=== PATIENT | female | born 1960 | race Caucasian/White ===

== ENCOUNTER 2017-07-18 05:04 | Inpatient (IN) | payer MEDICAID ==
[2017-07-18] MEDS ORDERED: NS 1,000 ML IV ONE ×2 (05:13→05:57)
[2017-07-18 05:42] LABS: PLATELET COUNT 321 10^3/uL (150-400)
[2017-07-18] MEDS ORDERED: PROMETHAZINE HCL 25 MG/ML INJ IVP ONE (05:45)
--- NOTE | 2017-07-18 05:49 | EDPHY ---
H & P Stated Complaint: n/v Source: Patient Exam Limitations: No limitations - Personal History Current Tetanus Diphtheria and Acellular Pertussis (TDAP): Yes - Medical/Surgical History Hx Asthma: Yes Hx Chronic Respiratory Disease: No Hx Diabetes: No Hx Cardiac Disease: No Hx Renal Disease: No Hx Cirrhosis: Yes Hx Alcoholism: No Hx HIV/AIDS: No Hx Splenectomy or Spleen Trauma: No Other PMH: hypothyroid, fibro myalgia, - Social History Smoking Status: Light smoker Time Seen by Provider: 07/18/17 05:15 HPI/ROS: HPI The patient presents with nausea and vomiting which started abruptly about 3 hr ago which has been constant, moderate in severity, and associated with diffuse abdominal pain and cramping. She also reports occasional loose stools with this. [facility] and does report that there have been many sick people around her. She has not had a fever. She is brought in by ambulance and did receive Zofran in the field with minimal improvement in her symptoms.. REVIEW OF SYSTEMS Constitutional: No fever, no chills. Eyes: No discharge. ENT: No sore throat. Cardiovascular: No chest pain, no palpitations. Respiratory: No cough, no shortness of breath. Gastrointestinal: See HPI Genitourinary: No hematuria. Musculoskeletal: No back pain. Skin: No rashes. Neurological: No headache. 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, history of multiple hernia repairs with revision Soc Hx: Homeless, [facility] in pen[facility] PHYSICAL General Appearance: Alert, no distress Eyes: Pupils equal and round no pallor or injection ENT, Mouth: Mucous membranes moist Respiratory: There are no retractions, lungs are clear to auscultation Cardiovascular: Regular rate and rhythm Gastrointestinal: Abdomen is soft with tenderness to palpation in all quadrants Neurological: A&O, moves all extremities Skin: Warm and dry, no rashes Musculoskeletal: Neck is supple non tender Extremities: symmetrical, full range of motion Psychiatric: Patient is oriented X 3, there is no agitation (Riguzzi,Bobbi) Constitutional: Initial Vital Signs Temperature (C) 36.4 C 07/18/17 05:09 Heart Rate 60 07/18/17 05:09 Respiratory Rate 20 07/18/17 05:09 Blood Pressure 171/92 H 07/18/17 05:09 O2 Sat (%) 99 07/18/17 05:09 O2 Delivery Mode Room Air O2 (L/minute) 2 Allergies/Adverse Reactions: aspirin Allergy (Verified 07/18/17 05:08) codeine Allergy (Verified 07/18/17 05:08) hydrocodone Allergy (Verified 07/18/17 05:08) prochlorperazine [From Compazine] Allergy (Verified 07/18/17 05:08) Home Medications: Medication Instructions Recorded Ondansetron Odt [Zofran Odt 4 mg 4 mg PO Q4 PRN #10 tab 07/18/17 (*)] Medical Decision Making - Diagnostics Imaging Results: CT abdomen pelvis reviewed by me and discussed with Dr. Flores shows diffuse, mildly dilated small-bowel loops. Her patient is consistent with enteritis. No clear small-bowel obstruction at this time. Status post appendectomy, cholecystectomy, hernia repair. Dr. Flores called me back in and after further review of the CT is concerned that this is developing small-bowel obstruction (Warren Ruff) ED Course/Re-evaluation: Re-evaluated by me at 7:30 a.m.--patient tells me she feel aweful. Continues to have some abdominal cramping and be nauseated. No vomiting. I consulted discussed case with , hospitalist, who agrees to the admission (Warren Ruff) Differential Diagnosis: This is a 57-year-old female with past medical history of fibromyalgia, heroin use now on methadone, DJD of her spine who presents [facility] with nausea and vomiting for the last several hours. On exam, she is not actively vomiting, vital signs are normal, her abdomen is tender throughout. Differential diagnosis includes viral gastroenteritis, toxin mediated enterocolitis, small-bowel obstruction. In the emergency department, patient received IV fluids and antiemetics. Labs were checked and did reveal elevated BUN and creatinine. The patient went for CT scan to evaluate for SBO. At 7:00 a.m., the case was signed out to the oncoming provider Dr. Ruff pending the patient's CT scan results. (Bobbi Fischer) - Data Points Laboratory Results: Laboratory Results 07/18/17 05:25 07/18/17 05:25 07/18/17 07/18/17 05:25 05:25 WBC 11.24 10^3/uL H 10^3/uL (3.80-9.50) RBC 4.09 10^6/uL L 10^6/uL (4.18-5.33) Hgb 11.8 g/dL L g/dL (12.6-16.3) Hct 36.5 % L % (38.0-47.0) MCV 89.2 fL fL (81.5-99.8) MCH 28.9 pg pg (27.9-34.1) MCHC 32.3 g/dL L g/dL (32.4-36.7) RDW 16.7 % H % (11.5-15.2) Plt Count 321 10^3/uL 10^3/uL (150-400) MPV 9.3 fL fL (8.7-11.7) Neut % (Auto) 88.7 % H % (39.3-74.2) Lymph % (Auto) 5.8 % L % (15.0-45.0) [place]nn % (Auto) 3.3 % L % (4.5-13.0) Eos % (Auto) 1.5 % % (0.6-7.6) Baso % (Auto) 0.3 % % (0.3-1.7) Nucleat RBC Rel Count 0.0 % % (0.0-0.2) Absolute Neuts (auto) 9.97 10^3/uL H 10^3/uL (1.70-6.50) Absolute Lymphs (auto) 0.65 10^3/uL L 10^3/uL (1.00-3.00) Absolute Monos (auto) 0.37 10^3/uL 10^3/uL (0.30-0.80) Absolute Eos (auto) 0.17 10^3/uL 10^3/uL (0.03-0.40) Absolute Basos (auto) 0.03 10^3/uL 10^3/uL (0.02-0.10) Absolute Nucleated RBC 0.00 10^3/uL 10^3/uL (0-0.01) Immature Gran % 0.4 % % (0.0-1.1) Immature Gran # 0.05 10^3/uL 10^3/uL (0.00-0.10) Sodium 144 mEq/L mEq/L (135-145) Potassium 4.8 mEq/L mEq/L (3.5-5.2) Chloride 108 mEq/L mEq/L (97-110) Carbon Dioxide 24 mEq/l mEq/l (22-31) Anion Gap 12 mEq/L mEq/L (8-16) BUN 32 mg/dL H mg/dL (7-23) Creatinine 1.7 mg/dL H mg/dL (0.6-1.0) Estimated GFR 31 Glucose 96 mg/dL mg/dL (70-100) Calcium 9.2 mg/dL mg/dL (8.5-10.4) Total Bilirubin 0.5 mg/dL mg/dL (0.1-1.4) AST 21 IU/L IU/L (14-46) ALT 30 IU/L IU/L (9-52) Alkaline Phosphatase 121 IU/L IU/L (38-126) Total Protein 7.8 g/dL g/dL (6.3-8.2) Albumin 4.3 g/dL g/dL (3.5-5.0) Lipase 154 IU/L IU/L (23-300) Medications Given: Discontinued Medications Sodium Chloride (Ns) 1,000 mls @ 3,000 mls/hr IV ONCE ONE Stop: 07/18/17 05:32 Last Admin: 07/18/17 05:14 Dose: 1,000 mls Sodium Chloride (Ns) 1,000 mls @ 0 mls/hr IV EDNOW ONE; Wide Open PRN Reason: Protocol Stop: 07/18/17 05:58 Last Admin: 07/18/17 06:01 Dose: 1,000 mls Promethazine HCl (Phenergan) 12.5 mg IVP ONCE ONE Stop: 07/18/17 05:46 Last Admin: 07/18/17 05:54 Dose: 12.5 mg Departure - Departure Disposition: [facility] Clinical Impression: Nausea & vomiting Qualifiers: Vomiting type: unspecified Vomiting Intractability: non-intractable Qualified Code(s): R11.2 - Nausea with vomiting, unspecified Condition: Good Instructions: Acute Nausea and Vomiting (ED) Additional Instructions: Please make sure to drink clear fluids until your feeling better. You should return to the emergency department if your worse in any way, otherwise you should [facility] in the next few days. Referrals: [facility],. [Clinic] - As per Instructions Prescriptions: Ondansetron Odt [Zofran Odt 4 mg (*)] 4 mg PO Q4 PRN #10 tab PRN Reason: Nausea/Vomiting, Can'T Take Po
[2017-07-18] MEDS ORDERED: IOPAMIDOL (ISOVUE-300) 100 ML BTL ONE (05:58)
[2017-07-18] MEDS ORDERED: PROMETHAZINE HCL 25 MG/ML INJ IVP PRN (08:23)
--- NOTE | 2017-07-18 08:30 | PDGENHP ---
History and Physical - Chief Complaint abd pain/n/v - History of Present Illness 57 yo F with PMH of fibromyalgia, chronic pain with continuous narcotic use and dependency as well as heroin dependency that is now being managed with methadone presenting with abdominal pain. She states the pain has been present since yesterday and is generalized throughout her entire abdomen. She has nausea and vomiting associated with the pain. She had a BM this morning that was loose. She has not had fever or chills. She has not eaten anything unusual recently. She has never had similar issues in the past. History Information - Allergies/Home Medication List Allergies/Adverse Reactions: aspirin Allergy (Verified 07/18/17 05:08) codeine Allergy (Verified 07/18/17 05:08) hydrocodone Allergy (Verified 07/18/17 05:08) prochlorperazine [From Compazine] Allergy (Verified 07/18/17 05:08) Home Medications: Methadone HCl [Methadone 5 mg (*)] 105 mg PO DAILY 07/18/17 [Last Taken 07/17/17 ] fentaNYL [Duragesic 100 MCG Patch (*)] 100 mcg TD Q2D 07/18/17 [Last Taken 07/18] fentaNYL [Fentanyl] 25 mcg TD Q2D 07/18/17 [Last Taken 07/18/17] I have personally reviewed and updated: family history, medical history, social history, surgical history - Past Medical History fibromyalgia Additional medical history: hx of IVDA--now on methadone. chronic pain with continuous opiate use and dependence - Surgical History Reports: appendectomy, cholecystectomy, hernia repair, spinal surgery - Family History Positive for: non-pertinent - Social History Smoking Status: Light smoker Alcohol Use: Occasionally Drug Use: Heroin (now on methadone), Other Review of Systems Review of Systems: ROS: 10pt was reviewed & negative except for what was stated in HPI & below Physical Exam Physical Exam: Temp Pulse Resp BP Pulse Ox 36.9 C 61 16 150/88 H 96 07/18/17 08:16 07/18/17 08:16 07/18/17 08:16 07/18/17 08:16 07/18/17 08:16 Constitutional: no apparent distress, unkempt Eyes: PERRL, anicteric sclera Ears, Nose, Mouth, Throat: moist mucous membranes, hearing normal Cardiovascular: regular rate and rhythym, no murmur, rub, or gallop, No edema Respiratory: no respiratory distress, no rales or rhonchi Gastrointestinal: normoactive bowel sounds, soft, non-tender abdomen Genitourinary: no bladder tenderness Skin: warm, normal color Musculoskeletal: full muscle strength Neurologic: AAOx3 Psychiatric: interacting appropriately, not anxious, not encephalopathic Lab Data & Imaging Review 07/18/17 05:25 07/18/17 05:25 WBC 11.24 10^3/uL (3.80-9.50) H 07/18/17 05:25 RBC 4.09 10^6/uL (4.18-5.33) L 07/18/17 05:25 Hgb 11.8 g/dL (12.6-16.3) L 07/18/17 05:25 Hct 36.5 % (38.0-47.0) L 07/18/17 05:25 MCV 89.2 fL (81.5-99.8) 07/18/17 05:25 MCH 28.9 pg (27.9-34.1) 07/18/17 05:25 MCHC 32.3 g/dL (32.4-36.7) L 07/18/17 05:25 RDW 16.7 % (11.5-15.2) H 07/18/17 05:25 Plt Count 321 10^3/uL (150-400) 07/18/17 05:25 MPV 9.3 fL (8.7-11.7) 07/18/17 05:25 Neut % (Auto) 88.7 % (39.3-74.2) H 07/18/17 05:25 Lymph % (Auto) 5.8 % (15.0-45.0) L 07/18/17 05:25 [place] % (Auto) 3.3 % (4.5-13.0) L 07/18/17 05:25 Eos % (Auto) 1.5 % (0.6-7.6) 07/18/17 05:25 Baso % (Auto) 0.3 % (0.3-1.7) 07/18/17 05:25 Nucleat RBC Rel Count 0.0 % (0.0-0.2) 07/18/17 05:25 Absolute Neuts (auto) 9.97 10^3/uL (1.70-6.50) H 07/18/17 05:25 Absolute Lymphs (auto) 0.65 10^3/uL (1.00-3.00) L 07/18/17 05:25 Absolute Monos (auto) 0.37 10^3/uL (0.30-0.80) 07/18/17 05:25 Absolute Eos (auto) 0.17 10^3/uL (0.03-0.40) 07/18/17 05:25 Absolute Basos (auto) 0.03 10^3/uL (0.02-0.10) 07/18/17 05:25 Absolute Nucleated RBC 0.00 10^3/uL (0-0.01) 07/18/17 05:25 Immature Gran % 0.4 % (0.0-1.1) 07/18/17 05:25 Immature Gran # 0.05 10^3/uL (0.00-0.10) 07/18/17 05:25 Sodium 144 mEq/L (135-145) 07/18/17 05:25 Potassium 4.8 mEq/L (3.5-5.2) 07/18/17 05:25 Chloride 108 mEq/L (97-110) 07/18/17 05:25 Carbon Dioxide 24 mEq/l (22-31) 07/18/17 05:25 Anion Gap 12 mEq/L (8-16) 07/18/17 05:25 BUN 32 mg/dL (7-23) H 07/18/17 05:25 Creatinine 1.7 mg/dL (0.6-1.0) H 07/18/17 05:25 Estimated GFR 31 07/18/17 05:25 Glucose 96 mg/dL (70-100) 07/18/17 05:25 Calcium 9.2 mg/dL (8.5-10.4) 07/18/17 05:25 Total Bilirubin 0.5 mg/dL (0.1-1.4) 07/18/17 05:25 AST 21 IU/L (14-46) 07/18/17 05:25 ALT 30 IU/L (9-52) 07/18/17 05:25 Alkaline Phosphatase 121 IU/L (38-126) 07/18/17 05:25 Total Protein 7.8 g/dL (6.3-8.2) 07/18/17 05:25 Albumin 4.3 g/dL (3.5-5.0) 07/18/17 05:25 Lipase 154 IU/L (23-300) 07/18/17 05:25 Visualized and Interpreted imaging results: Yes Interpretation: abd CT: ? early partial SBO versus enteritis Assessment & Plan Assessment: Nausea & vomiting (Acute) 57 yo F with hx of chronic pain on continuous narcotics as well as heroin dependence now on methadone presenting with abd pain/n/v # abd pain/n/v: with an abdominal CT concerning for partial SBO versus enteritis. She does have a hx of multiple abdominal surgeries putting her at risk for sbo. Will treat conservatively for now with bowel rest and IVF. Do not feel that surgical consultation is needed at this time, sxs relatively mild and abdominal exam is reassuring. # chronic pain with continuous narcotic use and dependency: patient states her pain is related to hx of fibromyalgia. She is also on methadone for opiate replacement for hx of heroin abuse--unclear if methadone clinic and pain doctor are aware that she is utililizing both. Pulled PDMP data (placed in chart), she is getting fentanyl patch 125mcg and oxycodone 20mg tid regularly each month in addition to methadone 105 daily. Very concerning behavior--will need to review with patient and notify prescribing doctors. # hx of heroin abuse: as above, reportedly now in remission though patient continues to use high dose opiates and methadone # fibromyalgia: as above # tobacco use: declines patch # dispo: observation Patient new to my care. Old records reviewed and summarized as above.
[2017-07-18] MEDS: NS 1,000 ML IV SCH ×2 (08:47→17:17)
[2017-07-18] MEDS: ONDANSETRON 4 MG/2 ML VIAL IVP PRN ×3 (08:47→17:17)
[2017-07-18] MEDS ORDERED: METHADONE HCL 5 MG TAB PO SCH (09:45)
[2017-07-18] MEDS ORDERED: fentaNYL 25 MCG PATCH TD SCH (09:45)
[2017-07-18] MEDS ORDERED: fentaNYL 100 MCG PATCH TD SCH (09:45)
--- NOTE | 2017-07-18 10:05 | ASMTCASEMG ---
Living Arrangements What is your living Answers: Alone arrangement? Who do you live with? Type Of Residence What kind of residence do Answers: Homeless you live in? Discharge Plan Comments Coordination Status Comments Notes: Patient is a 57yo single female who [facility] by [facility] for nausea and vomiting that started abruptly. Patient has a hx of heroin abuse and is currently on methadone. Dr. Flores after further review of patient's CT scan, is concerned patient is developing a small bowel obstruction. Patient has been admitted inpatient and a nutritional consult has been ordered. D/C plan TBD. CM will follow. Date Signed: 07/18/2017 10:04 AM Electronically Signed By:Danita Mckeon LCSW
[2017-07-18] MEDS: oxyCODONE IR 5 MG TAB PO PRN ×4 (10:23→22:53)
[2017-07-18] MEDS: ENOXAPARIN 40 MG/0.4 ML SYR SC SCH (10:23)
[2017-07-18] MEDS: METHADONE HCL 10 MG/ML 1000 ML BULK BOTTLE PO SCH (11:59)
[2017-07-18] MEDS ORDERED: diphenhydrAMINE 25 MG CAP PO PRN (22:49)
[2017-07-18] MEDS: MELATONIN 3 MG TAB PO PRN (22:53)
[2017-07-19] MEDS: NS 1,000 ML IV SCH ×3 (00:50→17:10)
[2017-07-19] MEDS: oxyCODONE IR 5 MG TAB PO PRN ×2 (05:58→09:13)
[2017-07-19] MEDS: METHADONE HCL 10 MG/ML 1000 ML BULK BOTTLE PO SCH (08:38)
[2017-07-19] MEDS: ENOXAPARIN 40 MG/0.4 ML SYR SC SCH (08:39)
[2017-07-19] MEDS: ONDANSETRON 4 MG/2 ML VIAL IVP PRN ×2 (09:13→20:41)
--- NOTE | 2017-07-19 11:06 | HOSPPROG ---
Hospitalist Progress Note Assessment/Plan: 57 yo F with hx of chronic pain on continuous narcotics as well as heroin dependence now on methadone presenting with abd pain/n/v. First encounter, chart reviewed. D/W CM. # abd pain/n/v: with an abdominal CT concerning for partial SBO versus enteritis. She does have a hx of multiple abdominal surgeries putting her at risk for sbo. Will treat conservatively for now with bowel rest and IVF. Do not feel that surgical consultation is needed at this time, sxs relatively mild and abdominal exam is reassuring. # chronic pain with continuous narcotic use and dependency: patient states her pain is related to hx of fibromyalgia. She is also on methadone for opiate replacement for hx of heroin abuse--unclear if methadone clinic and pain doctor are aware that she is utilizing both. PDMP data (placed in chart), she is getting fentanyl patch 125mcg and oxycodone 20mg tid regularly each month in addition to methadone 105 daily. Very concerning behavior--reviewed with patient, med received form two different providers. Will cont to hold fentanyl patch and DC Oxy, explained to pt. # hx of heroin abuse: as above, reportedly now in remission though patient continues to use high dose opiates and methadone # fibromyalgia: as above # tobacco use: declines patch # dispo: change to inpt status needs supportive care for cont SBO Patient new to my care. Old records reviewed and summarized as above. Subjective: Still having some abdominal pain. Not hungry. Objective: Vital Signs Temp Pulse Resp BP Pulse Ox 36.7 C 55 L 16 124/63 H 98 07/19/17 08:21 07/19/17 08:21 07/19/17 08:21 07/19/17 08:21 07/19/17 08:21 Microbiology 07/18/17 12:10 Respiratory Panel (PCR) - Final Nasal, Sinus - Swab No Organism Detected Laboratory Results 07/19/17 04:27 07/18/17 07/19/17 07/20/17 05:59 05:59 05:59 Intake Total 3587 Balance 3587 - Physical Exam Constitutional: appears nourished, chronically ill appearing, uncomfortable Eyes: PERRL, anicteric sclera, EOMI Ears, Nose, Mouth, Throat: moist mucous membranes, hearing normal, ears appear normal Cardiovascular: regular rate and rhythym, No JVD, No edema Respiratory: no respiratory distress, no rales or rhonchi, clear to auscultation Gastrointestinal: tenderness, No normoactive bowel sounds, No ascites, No guarding Skin: warm, normal color, No mottled Musculoskeletal: normal joint ROM, no joint effusions, generalized weakness Neurologic: AAOx3 Psychiatric: interacting appropriately, not anxious, not encephalopathic ICD10 Worksheet Patient Problems: Problems Problem Status Onset Nausea & vomiting Acute
--- NOTE | 2017-07-19 12:01 | ASMTCMCOM ---
CM Note CM Note Notes: CM met w/ pt for dispo planning. Pt is agreeable to signing up with [facility] outpatient services. Catalina, the lining caser from [facility] met w/ pt and signed her up w/ services. Pt is currently staying at the [facility] and plans on returning. Pt would like CM to reserve a retirement bed once medically stable to d/c. Pt plans on working w/ the [facility] retirement rn case manager hospice to obtain housing. CM to follow. Plan: Independent to retirement Date Signed: 07/19/2017 12:01 PM Electronically Signed By:DAGOBERTO Mccormick
--- NOTE | 2017-07-19 15:07 | PDMN ---
Medical Necessity Medical necessity: Change to IP, as of 07/19/17, per MIS SPECIALIST; los >2 mn for ongoing management of abdominal pain & N/V r/t SBO vs enteritis; admit for further workup/monitoring, supportive care, IVFs & IV antiemetics; hx heroin abuse, fibromyalgia; per progress note & order 07/19/17
[2017-07-19] MEDS ORDERED: guaiFENesin 200 MG/10 ML UDL PO PRN (17:23)
[2017-07-19] MEDS: ONDANSETRON DISINTEGRATING 4 MG TAB PO PRN (19:49)
[2017-07-19] MEDS: DIAZEPAM 5 MG/ML 1 ML SYR IVP PRN (20:34)
[2017-07-19] MEDS: MELATONIN 3 MG TAB PO PRN (20:41)
[2017-07-20] MEDS: ONDANSETRON 4 MG/2 ML VIAL IVP PRN ×2 (01:17→20:36)
[2017-07-20] MEDS: METHADONE HCL 10 MG/ML 1000 ML BULK BOTTLE PO SCH (08:01)
[2017-07-20] MEDS: ENOXAPARIN 40 MG/0.4 ML SYR SC SCH (08:01)
[2017-07-20] MEDS: NS 1,000 ML IV SCH ×2 (08:57→22:07)
--- NOTE | 2017-07-20 12:27 | HOSPPROG ---
Hospitalist Progress Note Assessment/Plan: 57 yo F with hx of chronic pain on continuous narcotics as well as heroin dependence now on methadone presenting with abd pain/n/v. # abd pain/n/v: less pain today, passing some gas abd xray pending with an abdominal CT concerning for partial SBO versus enteritis. She does have a hx of multiple abdominal surgeries putting her at risk for sbo as well has narcotic use Will treat conservatively for now with bowel rest and IVF. Do not feel that surgical consultation is needed at this time, sxs relatively mild and abdominal exam is reassuring. # chronic pain with continuous narcotic use and dependency: patient states her pain is related to hx of fibromyalgia. She is also on methadone for opiate replacement for hx of heroin abuse--unclear if methadone clinic and pain doctor are aware that she is utilizing both. PDMP data (placed in chart), she is getting fentanyl patch 125mcg and oxycodone 20mg tid regularly each month in addition to methadone 105 daily. Very concerning behavior--reviewed with patient, med received from two different providers. Pharmacy notified providers Will cont to hold fentanyl patch and DC Oxy, explained to pt. # hx of heroin abuse: as above, reportedly now in remission though patient continues to use high dose opiates and methadone # fibromyalgia: as above # tobacco use: declines patch # dispo: cont supportive care advance to clear liqiud diet needs supportive care for cont SBO Subjective: Still having some abd pain. Passing some gas. No new issues. Objective: Vital Signs Temp Pulse Resp BP Pulse Ox 36.7 C 52 L 16 149/78 H 94 07/20/17 11:16 07/20/17 11:16 07/20/17 11:16 07/20/17 11:31 07/20/17 11:16 Laboratory Results 07/20/17 09:50 07/19/17 07/20/17 07/21/17 05:59 05:59 05:59 Intake Total 3587 1400 Output Total 100 Balance 3587 1300 - Physical Exam Constitutional: no apparent distress, appears nourished, uncomfortable Eyes: PERRL, anicteric sclera, EOMI Ears, Nose, Mouth, Throat: moist mucous membranes, hearing normal, ears appear normal Cardiovascular: No JVD, No tachycardia, No edema Respiratory: no respiratory distress, no rales or rhonchi, clear to auscultation Gastrointestinal: tenderness, No ascites, No guarding Skin: warm, normal color, No mottled Musculoskeletal: normal joint ROM, no joint effusions, generalized weakness Neurologic: AAOx3 Psychiatric: interacting appropriately, not anxious, not encephalopathic, thought process linear ICD10 Worksheet Patient Problems: Problems Problem Status Onset Nausea & vomiting Acute
[2017-07-20] MEDS: DIAZEPAM 5 MG/ML 1 ML SYR IVP PRN (19:32)
[2017-07-20] MEDS: MELATONIN 3 MG TAB PO PRN (19:33)
[2017-07-20] MEDS: ONDANSETRON DISINTEGRATING 4 MG TAB PO PRN (19:44)
[2017-07-20] MEDS: ACETAMINOPHEN 325 MG TAB PO PRN (19:47)
[2017-07-21] MEDS: ACETAMINOPHEN 325 MG TAB PO PRN (04:23)
[2017-07-21 07:58] VITALS: BP 159/94
[2017-07-21] MEDS: ENOXAPARIN 40 MG/0.4 ML SYR SC SCH (08:18)
[2017-07-21] MEDS: METHADONE HCL 10 MG/ML 1000 ML BULK BOTTLE PO SCH (08:19)
--- NOTE | 2017-07-21 11:44 | ASMTLACE ---
[facility] Length of stay for Answers: 3 days current admission Acuity / Level of Answers: Yes Care: Did the patient have an inpatient admission? Comorbidities - select Answers: Opioid dependence all that apply / Chronic pain Other Notes: developing small bowel obstruction # of Emergency department Answers: 1-2 visits in the last 6 months Social determinants Answers: History of substance abuse (ETOH, street drugs, prescription drugs, etc.) Homelessness (street, residential) Lack of community resources and/or lack of social support (no pcp, lives alone, transportation, dav d) Score: 22 Date Signed: 07/21/2017 11:44 AM Electronically Signed By:Jerri Gil RN
--- NOTE | 2017-07-21 11:49 | ASMTCMCOM ---
CM Note CM Note Notes: Spoke w/pt, she will dc to [facility], CM confirmed that pt has gone through coordinated entry and [facility]. She needs to be there between 5-6pm, after that she would have to wait for lottery entry. Cab voucher given DC Plan: Custodial Date Signed: 07/21/2017 11:48 AM Electronically Signed By:Jerri Gil RN
--- NOTE | 2017-07-21 13:56 | GDS ---
[f rep st] DISCHARGE SUMMARY DISCHARGE DIAGNOSES: 1. Early small-bowel obstruction. 2. Chronic pain. 3. Chronic narcotic use. 4. Abdominal pain. 5. History of heroin abuse. 6. Fibromyalgia. 7. Tobacco abuse. 8. Acute renal failure. PROCEDURES PERFORMED: 1. CT of the abdomen. 2. Abdominal x-ray. PHYSICAL EXAM: GENERAL: The patient is alert. VITAL SIGNS: Afebrile at 36.9, pulse is 41, respira tory rate 12, blood pressure is 159/94, she is saturating 94% on room air. I have seen AND evaluated the patient on the day of discharge. HOSPITAL COURSE: The patient is a 57-year-old female who presented to the emergency room with compla ints of abdominal pain. She was evaluated and diagnosed with: 1. Acute abdominal pain in the setting of early small-bowel obstruction. During this hospitalizatio n, she was placed on bowel rest. CT of the abdomen noted potential partial small-bowel obstruction v ersus enteritis. The patient's symptoms have completely resolved. Her narcotics have been held duri ng this hospitalization and she has responded well to treatment. She is tolerating a regular diet an d her pain is no longer present. 2. Chronic pain with continuous narcotic use and dependency. The patient was previously taking oxyc odone as well as getting a fentanyl patch and being part of the methadone clinic. Her providers have been notified about this regimen. She will continue with the methadone clinic in the outpatient set ting. 3. Acute renal failure in the setting of dehydration. The patient has responded well to IV fluids a nd her renal function is normal today at the time of disposition. 4. History of heroin abuse. She states that she does not use any heroin or other non-prescriptive d rugs. 5. Myalgias, stable. 6. Tobacco dependency. Cessation education has been provided. 7. Disposition. The patient will be discharged to the homeless halfway. There are no pending studi es. I reviewed her disposition with Case Management. I spent greater than 35 minutes in the care, c oordination, and management of this patient's disposition. /[id number]/MODL
== END 2017-07-21 16:00 | disposition home or self-care (01) | DRG 247 ==
LOC: EDUNIT# → INTOOBSV 07:37 → OBSVTOIN 07:37 → F3E 08:12
PROVIDERS: ADMIT Internal Medicine; ATTEND Internal Medicine
DX: K56.609 Unspecified intestinal obstruction, unspecified as to partial versus complete obstruction (principal); N17.9 Acute kidney failure, unspecified; E03.9 Hypothyroidism, unspecified; M79.7 Fibromyalgia; G89.29 Other chronic pain; F11.20 Opioid dependence, uncomplicated; F17.210 Nicotine dependence, cigarettes, uncomplicated; Z59.0 Homelessness
CPT/HCPCS: 96374; G0378; J1650; J2405; J2550; J3360; Q9967